=== PATIENT | female | born 1935 | race African-American/Black ===

== ENCOUNTER 2019-08-03 13:42 | Inpatient (IN) ==
[2019-08-03 14:31] LABS: Basophils % 0.3 % (0.0-0.8); Eosinophils % 0.5 % (0.00-10.9); Hematocrit 42.9 VOL% (35.7-47.0); Hemoglobin 13.1 GM/DL (12.0-16.0); Immature Granulocytes % 0.4 %; Immature Granulocytes Absolute 0.03 #; Lymphocytes # 1.3 10*3/uL (1.4-4.0); Lymphocytes % 17.4 % (21.3-54.2); Mean Corpuscular HGB Conc 30.5 GM/DL (32-36); Mean Corpuscular Volume 79.4 FL (87-102); Mean Platelet Volume 10.4 FL (9.6-12.0); Monocytes % 4.8 % (1.7-12.7); Neutrophils % 76.6 % (38.7-73.9); Platelet Count 258 T/CUMM (130-400); Red Cell Distribution Width 18.1 % (9.3-17.3); White Blood Count 7.4 T/CUMM (4-12)
[2019-08-03 14:46] LABS: INR 1.1; PT Patient Result 11.5 SECS (9.8-11.9)
[2019-08-03 14:52] LABS: Albumin 3.4 G/DL (3.4-5.0); Bilirubin,Total 0.5 MG/DL (0.2-1.0); Osmolality,Calculated 282.3 MOS/KG (273-304); Total Protein 7.9 G/DL (6.4-8.3)
[2019-08-03] MEDS ORDERED: ENOXAPARIN 30 MG/0.3 ML SYRINGE SUBCUT STA (14:56)
[2019-08-03 14:58] LABS: Free T4 (Free Thyroxine) 1.1 NG/DL (0.76-1.46); Thyroid Stimulating Hormone 1.8 uIU/ml (0.358-3.74)
[2019-08-03] MEDS ORDERED: DEXTROSE 10% 250 ML BAG IV PRN (16:13)
[2019-08-03] MEDS ORDERED: GLUCAGON 1 MG VIAL IM PRN (16:13)
[2019-08-03] MEDS ORDERED: ASPIRIN EC 325 MG TABLET PO STA (16:21)
[2019-08-03] MEDS ORDERED: INSULIN REGULAR 100 UNIT/ML SUBCUT SCH (16:30)
[2019-08-03] MEDS: NITROGLYCERIN 2% OINT 1 INCH/GM PACK TOP SCH (18:16)
[2019-08-03] MEDS: ALUMINUM/MAGNES/SIMETH MAX STR 30 ML UDCUP PO PRN (20:30)
[2019-08-03 22:06] LABS: Apearance,Urine CLOUDY (Clear); Bilirubin,Urine Negative (Negative); Blood, Urine Negative (Negative); Glucose,Urine (UA) Negative (Negative); Hyaline Casts,Urine 33 /LPF (0-3); Ketones,Urine Negative (Negative); Mucus,Urine Few /LPF (Occasional); Nitrite,Urine Negative (Negative); Protein,Urine 30 MG/DL; RBC,Urine 17 /HPF (0-4); Squamous Epithelial Cell,Urine Occasional /HPF (0-10); Urine Color Amber (Yellow); Urine Specific Gravity 1.028 (1.001-1.035); Urine Urobilinogen < 2.0 EU/DL (0.2-1.0); WBC,Urine 50 /HPF (0-6)
[2019-08-04] MEDS: NITROGLYCERIN 2% OINT 1 INCH/GM PACK TOP SCH ×4 (00:25→18:19)
[2019-08-04] MEDS: ENOXAPARIN 80 MG/0.8 ML SYRINGE SUBCUT SCH ×2 (04:38→18:00)
[2019-08-04] MEDS: ACETAMINOPHEN 325 MG TABLET PO PRN (06:32)
[2019-08-04] MEDS ORDERED: MAGNESIUM SULF RIDER 2 GM in PREMIX 1 EACH IV PRN (07:29)
[2019-08-04] MEDS ORDERED: POTASSIUM CHLORIDE RIDER 10 MEQ in PREMIX 1 EACH IV PRN (07:29)
[2019-08-04] MEDS ORDERED: diphenhydrAMINE CAP 25 MG CAPSULE PO ONE ×2 (07:33→14:30)
[2019-08-04] MEDS ORDERED: DIAZEPAM 5 MG TABLET PO ONE ×2 (07:33→14:30)
[2019-08-04 07:42] LABS: Basophils % 0.1 % (0.0-0.8); Eosinophils # 0.2 10*3/uL (0.0-0.87); Eosinophils % 1.8 % (0.00-10.9); Hematocrit 40.3 VOL% (35.7-47.0); Hemoglobin 12.2 GM/DL (12.0-16.0); Immature Granulocytes % 0.2 %; Immature Granulocytes Absolute 0.02 #; Lymphocytes # 3.1 10*3/uL (1.4-4.0); Lymphocytes % 36.8 % (21.3-54.2); Mean Corpuscular HGB Conc 30.3 GM/DL (32-36); Mean Corpuscular Volume 79.3 FL (87-102); Mean Platelet Volume 10.5 FL (9.6-12.0); Monocytes % 6.4 % (1.7-12.7); Neutrophils % 54.7 % (38.7-73.9); Platelet Count 269 T/CUMM (130-400); Red Blood Count 5.08 MC/CUMM (3.8-5.5); Red Cell Distribution Width 17.5 % (9.3-17.3); White Blood Count 8.5 T/CUMM (4-12)
[2019-08-04 08:44] LABS: Risk Ratio 6.32; VLDL CHOLESTEROL 21.2 MG/DL
[2019-08-04 08:53] LABS: Bilirubin,Total 0.5 MG/DL (0.2-1.0); Calcium 8.7 MG/DL (8.5-10.1); Osmolality,Calculated 281.3 MOS/KG (273-304); Total Protein 7.3 G/DL (6.4-8.3)
[2019-08-04] MEDS ORDERED: carvediloL 3.125 MG TABLET PO SCH (09:00)
[2019-08-04] MEDS ORDERED: ASPIRIN EC 325 MG TABLET PO SCH (09:00)
[2019-08-04] MEDS ORDERED: LOSARTAN 50 MG TABLET PO SCH (09:00)
[2019-08-04] MEDS: PANTOPRAZOLE 40 MG TABLET PO SCH (09:50)
[2019-08-04] MEDS: cefTRIAXone 1,000 MG in SYRINGE 1 EACH IV SCH (09:50)
[2019-08-04] MEDS: MEMANTINE 5 MG TABLET PO SCH (09:50)
[2019-08-04] MEDS: amLODIPine 10 MG TABLET PO SCH (09:50)
[2019-08-04] MEDS ORDERED: DIAZEPAM 5 MG TABLET ONE (14:18)
[2019-08-04] MEDS ORDERED: diphenhydrAMINE CAP 25 MG CAPSULE ONE (14:19)
[2019-08-04] MEDS: SODIUM CHLORIDE 0.45% 1,000 ML IV SCH ×2 (14:23→23:12)
[2019-08-04] MEDS ORDERED: HEPARIN/NACL 0.9% 2 UNITS/ML 1,000 ML IV ONE (14:32)
[2019-08-04] MEDS ORDERED: LIDOCAINE 1%/EPI INJ 20 ML VIAL ONE (14:32)
[2019-08-04] MEDS ORDERED: fentaNYL 100 MCG/2 ML VIAL ONE (14:32)
[2019-08-04] MEDS ORDERED: MIDAZOLAM 2 MG/2 ML VIAL ONE (14:32)
[2019-08-04] MEDS ORDERED: hydrALAZINE 20 MG/1 ML VIAL ONE (15:05)
[2019-08-04] MEDS ORDERED: ONDANSETRON 4 MG/2 ML VIAL ONE (15:33)
[2019-08-04 17:27] LABS: Basophils % 0.2 % (0.0-0.8); Eosinophils # 0.1 10*3/uL (0.0-0.87); Eosinophils % 0.9 % (0.00-10.9); Hematocrit 40.5 VOL% (35.7-47.0); Hemoglobin 12.5 GM/DL (12.0-16.0); Immature Granulocytes % 0.4 %; Immature Granulocytes Absolute 0.04 #; Lymphocytes # 2.8 10*3/uL (1.4-4.0); Mean Corpuscular HGB Conc 30.9 GM/DL (32-36); Mean Corpuscular Volume 79.4 FL (87-102); Mean Platelet Volume 9.7 FL (9.6-12.0); Monocytes % 4.8 % (1.7-12.7); Neutrophils % 66.7 % (38.7-73.9); Platelet Count 250 T/CUMM (130-400); Red Cell Distribution Width 18.1 % (9.3-17.3); White Blood Count 10.3 T/CUMM (4-12)
[2019-08-04] MEDS: hydrALAZINE 20 MG/1 ML VIAL IV PRN (19:06)
[2019-08-04] MEDS: ONDANSETRON 4 MG/2 ML VIAL IV PRN (19:50)
[2019-08-04] MEDS ORDERED: ALUM/MAG/SIMETH/LIDO VISC 1:1 30 ML BOTTLE PO ONE (20:04)
[2019-08-04] MEDS ORDERED: PANTOPRAZOLE 40 MG VIAL IV ONE (20:19)
[2019-08-04] MEDS: HYDROmorphone 2 MG/1 ML VIAL IV PRN (20:30)
[2019-08-04] MEDS: ROSUVASTATIN 20 MG TABLET PO SCH (21:27)
[2019-08-04] MEDS: ALUMINUM/MAGNES/SIMETH MAX STR 30 ML UDCUP PO PRN (21:28)
[2019-08-04] MEDS: METOPROLOL TARTRATE 50 MG TABLET PO SCH (21:28)
[2019-08-05] MEDS: NITROGLYCERIN 2% OINT 1 INCH/GM PACK TOP SCH ×4 (00:01→17:27)
[2019-08-05] MEDS: ENOXAPARIN 80 MG/0.8 ML SYRINGE SUBCUT SCH ×2 (03:30→15:21)
[2019-08-05] MEDS: LEVOTHYROXINE 100 MCG TABLET PO SCH (05:31)
[2019-08-05 07:05] LABS: Osmolality,Calculated 271.1 MOS/KG (273-304)
[2019-08-05 07:24] LABS: Basophils % 0.1 % (0.0-0.8); Eosinophils % 0.1 % (0.00-10.9); Hematocrit 40.1 VOL% (35.7-47.0); Hemoglobin 12.4 GM/DL (12.0-16.0); Immature Granulocytes % 0.4 %; Immature Granulocytes Absolute 0.04 #; Lymphocytes # 2.3 10*3/uL (1.4-4.0); Lymphocytes % 20.7 % (21.3-54.2); Mean Corpuscular HGB Conc 30.9 GM/DL (32-36); Mean Corpuscular Volume 78.3 FL (87-102); Mean Platelet Volume 10.7 FL (9.6-12.0); Monocytes % 3.7 % (1.7-12.7); Platelet Count 269 T/CUMM (130-400); Red Blood Count 5.12 MC/CUMM (3.8-5.5); White Blood Count 10.9 T/CUMM (4-12)
[2019-08-05] MEDS: SODIUM CHLORIDE 0.9% 1,000 ML IV SCH ×2 (08:19→17:27)
[2019-08-05] MEDS: ASPIRIN EC 81 MG TABLET PO SCH (09:08)
[2019-08-05] MEDS: METOPROLOL TARTRATE 50 MG TABLET PO SCH ×2 (09:09→21:06)
[2019-08-05] MEDS: MEMANTINE 5 MG TABLET PO SCH (09:09)
[2019-08-05] MEDS: amLODIPine 10 MG TABLET PO SCH (09:09)
[2019-08-05] MEDS: PANTOPRAZOLE 40 MG TABLET PO SCH (09:10)
[2019-08-05] MEDS: cefTRIAXone 1,000 MG in SYRINGE 1 EACH IV SCH (09:19)
[2019-08-05] MEDS: ACETAMINOPHEN 325 MG TABLET PO PRN (15:20)
[2019-08-05] MEDS: hydrALAZINE 20 MG/1 ML VIAL IV PRN (16:02)
[2019-08-05] MEDS: ONDANSETRON 4 MG/2 ML VIAL IV PRN (20:38)
[2019-08-05] MEDS: HYDROmorphone 2 MG/1 ML VIAL IV PRN (20:38)
[2019-08-05] MEDS: ROSUVASTATIN 20 MG TABLET PO SCH (21:06)
[2019-08-05] MEDS: ALUMINUM/MAGNES/SIMETH MAX STR 30 ML UDCUP PO PRN (21:07)
[2019-08-06] MEDS: NITROGLYCERIN 2% OINT 1 INCH/GM PACK TOP SCH ×4 (01:36→17:08)
[2019-08-06] MEDS: ENOXAPARIN 80 MG/0.8 ML SYRINGE SUBCUT SCH ×2 (04:16→14:49)
[2019-08-06 07:05] LABS: Basophils % 0.1 % (0.0-0.8); Eosinophils % 0.1 % (0.00-10.9); Hematocrit 29.7 VOL% (35.7-47.0); Immature Granulocytes % 0.3 %; Immature Granulocytes Absolute 0.03 #; Lymphocytes # 2.1 10*3/uL (1.4-4.0); Mean Corpuscular HGB Conc 30.3 GM/DL (32-36); Mean Corpuscular Volume 80.1 FL (87-102); Mean Platelet Volume 10.5 FL (9.6-12.0); Neutrophils % 71.5 % (38.7-73.9); Platelet Count 216 T/CUMM (130-400); Red Blood Count 3.71 MC/CUMM (3.8-5.5); Red Cell Distribution Width 17.6 % (9.3-17.3); White Blood Count 9.2 T/CUMM (4-12)
[2019-08-06 07:26] LABS: Albumin 2.7 G/DL (3.4-5.0); Bilirubin,Total 0.5 MG/DL (0.2-1.0); Calcium 8.3 MG/DL (8.5-10.1); Osmolality,Calculated 275.8 MOS/KG (273-304); Total Protein 6.4 G/DL (6.4-8.3)
[2019-08-06] MEDS: LEVOTHYROXINE 100 MCG TABLET PO SCH (07:44)
[2019-08-06] MEDS: SODIUM CHLORIDE 0.9% 1,000 ML IV SCH (10:17)
[2019-08-06] MEDS: ASPIRIN EC 81 MG TABLET PO SCH (10:18)
[2019-08-06] MEDS: amLODIPine 10 MG TABLET PO SCH (10:18)
[2019-08-06] MEDS: cefTRIAXone 1,000 MG in SYRINGE 1 EACH IV SCH ×2 (10:18→10:22)
[2019-08-06] MEDS: MEMANTINE 5 MG TABLET PO SCH (10:18)
[2019-08-06] MEDS: PANTOPRAZOLE 40 MG TABLET PO SCH (10:18)
[2019-08-06] MEDS: METOPROLOL TARTRATE 50 MG TABLET PO SCH ×2 (10:18→20:56)
[2019-08-06 11:38] LABS: % Iron Saturation 9.4 % (18-50); Ferritin 131.3 ng/ml (8-252)
[2019-08-06 12:11] LABS: Hematocrit 30.1 VOL% (35.7-47.0); Hemoglobin 9.1 GM/DL (12.0-16.0)
[2019-08-06 12:37] LABS: Folate > 24.0 NG/ML (5.4-24.0); Vitamin B12 655 PG/ML (211-911)
[2019-08-06] MEDS: ROSUVASTATIN 20 MG TABLET PO SCH (20:56)
[2019-08-07] MEDS: NITROGLYCERIN 2% OINT 1 INCH/GM PACK TOP SCH ×2 (03:11→06:51)
[2019-08-07] MEDS: ENOXAPARIN 80 MG/0.8 ML SYRINGE SUBCUT SCH (03:12)
[2019-08-07 05:55] LABS: Basophils % 0.3 % (0.0-0.8); Eosinophils # 0.2 10*3/uL (0.0-0.87); Eosinophils % 1.8 % (0.00-10.9); Hemoglobin 8.2 GM/DL (12.0-16.0); Immature Granulocytes % 0.3 %; Immature Granulocytes Absolute 0.03 #; Lymphocytes # 2.3 10*3/uL (1.4-4.0); Lymphocytes % 21.7 % (21.3-54.2); Mean Corpuscular HGB Conc 31.5 GM/DL (32-36); Mean Corpuscular Volume 77.2 FL (87-102); Mean Platelet Volume 10.7 FL (9.6-12.0); Monocytes % 7.8 % (1.7-12.7); Neutrophils % 68.1 % (38.7-73.9); Platelet Count 194 T/CUMM (130-400); Red Blood Count 3.37 MC/CUMM (3.8-5.5); Red Cell Distribution Width 17.7 % (9.3-17.3); White Blood Count 10.6 T/CUMM (4-12)
[2019-08-07] MEDS: LEVOTHYROXINE 100 MCG TABLET PO SCH (06:51)
[2019-08-07] MEDS ORDERED: CLOPIDOGREL 75 MG TABLET PO SCH (09:00)
[2019-08-07] MEDS: MEMANTINE 5 MG TABLET PO SCH (09:36)
[2019-08-07] MEDS: PANTOPRAZOLE 40 MG TABLET PO SCH (09:36)
[2019-08-07] MEDS: ASPIRIN EC 81 MG TABLET PO SCH (09:36)
[2019-08-07] MEDS: cefTRIAXone 1,000 MG in SYRINGE 1 EACH IV SCH (09:37)
[2019-08-07] MEDS: METOPROLOL TARTRATE 50 MG TABLET PO SCH ×2 (09:37→21:44)
[2019-08-07] MEDS: amLODIPine 10 MG TABLET PO SCH (09:37)
[2019-08-07] MEDS: ISOSORBIDE MONONITRATE 30 MG TABLET PO SCH (13:13)
[2019-08-07] MEDS: FERROUS SULFATE 325 MG TABLET PO SCH ×2 (13:13→21:43)
[2019-08-07] MEDS: ROSUVASTATIN 20 MG TABLET PO SCH (21:43)
[2019-08-08 05:02] LABS: Basophils % 0.1 % (0.0-0.8); Eosinophils # 0.3 10*3/uL (0.0-0.87); Eosinophils % 2.2 % (0.00-10.9); Hematocrit 26.3 VOL% (35.7-47.0); Hemoglobin 8.1 GM/DL (12.0-16.0); Immature Granulocytes % 0.6 %; Immature Granulocytes Absolute 0.08 #; Lymphocytes # 2.4 10*3/uL (1.4-4.0); Lymphocytes % 16.5 % (21.3-54.2); Mean Corpuscular HGB Conc 30.8 GM/DL (32-36); Mean Platelet Volume 10.8 FL (9.6-12.0); Monocytes % 6.2 % (1.7-12.7); Neutrophils % 74.4 % (38.7-73.9); Platelet Count 205 T/CUMM (130-400); Red Blood Count 3.37 MC/CUMM (3.8-5.5); White Blood Count 14.4 T/CUMM (4-12)
[2019-08-08 05:25] LABS: Osmolality,Calculated 281.5 MOS/KG (273-304)
[2019-08-08] MEDS: LEVOTHYROXINE 100 MCG TABLET PO SCH (05:32)
[2019-08-08] MEDS: ISOSORBIDE MONONITRATE 30 MG TABLET PO SCH (08:49)
[2019-08-08] MEDS: amLODIPine 10 MG TABLET PO SCH (08:49)
[2019-08-08] MEDS: FERROUS SULFATE 325 MG TABLET PO SCH ×2 (08:49→21:28)
[2019-08-08] MEDS: MEMANTINE 5 MG TABLET PO SCH (08:49)
[2019-08-08] MEDS: METOPROLOL TARTRATE 50 MG TABLET PO SCH (08:49)
[2019-08-08] MEDS: ACETAMINOPHEN 325 MG TABLET PO PRN (08:49)
[2019-08-08] MEDS: PANTOPRAZOLE 40 MG TABLET PO SCH (08:49)
[2019-08-08] MEDS: ASPIRIN EC 81 MG TABLET PO SCH (08:49)
[2019-08-08] MEDS: cefTRIAXone 1,000 MG in SYRINGE 1 EACH IV SCH (08:50)
[2019-08-08] MEDS ORDERED: METOPROLOL TARTRATE 25 MG TABLET PO ONE (10:00)
[2019-08-08] MEDS: SODIUM CHLORIDE 0.9% 1,000 ML IV SCH ×2 (11:26→22:43)
[2019-08-08] MEDS ORDERED: PHENOL 1.4% THROAT SPRAY 177 ML BOTTLE PO PRN (17:09)
[2019-08-08] MEDS: ROSUVASTATIN 20 MG TABLET PO SCH (21:28)
[2019-08-08] MEDS: METOPROLOL TARTRATE 100 MG TABLET PO SCH (21:28)
[2019-08-09 04:38] LABS: Basophils % 0.1 % (0.0-0.8); Eosinophils # 0.5 10*3/uL (0.0-0.87); Eosinophils % 3.1 % (0.00-10.9); Hematocrit 25.6 VOL% (35.7-47.0); Hemoglobin 7.9 GM/DL (12.0-16.0); Immature Granulocytes % 0.7 %; Lymphocytes # 2.4 10*3/uL (1.4-4.0); Lymphocytes % 16.7 % (21.3-54.2); Mean Corpuscular HGB Conc 30.9 GM/DL (32-36); Mean Corpuscular Volume 79.3 FL (87-102); Mean Platelet Volume 10.6 FL (9.6-12.0); Monocytes % 6.3 % (1.7-12.7); NRBC # 0.02 10*3/uL; Neutrophils % 73.1 % (38.7-73.9); Platelet Count 210 T/CUMM (130-400); Red Blood Count 3.23 MC/CUMM (3.8-5.5); Red Cell Distribution Width 18.1 % (9.3-17.3); White Blood Count 14.5 T/CUMM (4-12)
[2019-08-09 04:39] LABS: Basophils % 0.2 % (0.0-0.8); Eosinophils # 0.4 10*3/uL (0.0-0.87); Eosinophils % 2.9 % (0.00-10.9); Hematocrit 26.1 VOL% (35.7-47.0); Hemoglobin 7.9 GM/DL (12.0-16.0); Immature Granulocytes % 0.6 %; Immature Granulocytes Absolute 0.09 #; Lymphocytes # 2.4 10*3/uL (1.4-4.0); Lymphocytes % 16.7 % (21.3-54.2); Mean Corpuscular HGB Conc 30.3 GM/DL (32-36); Mean Corpuscular Volume 79.1 FL (87-102); Mean Platelet Volume 10.5 FL (9.6-12.0); Monocytes % 6.3 % (1.7-12.7); NRBC # 0.03 10*3/uL; Neutrophils % 73.3 % (38.7-73.9); Platelet Count 214 T/CUMM (130-400); Red Cell Distribution Width 18.1 % (9.3-17.3); White Blood Count 14.3 T/CUMM (4-12)
[2019-08-09 05:12] LABS: INR 1.1; PT Patient Result 11.3 SECS (9.8-11.9); Partial Thromboplastin Time 26.6 SECS (23.9-33.8)
[2019-08-09] MEDS: SODIUM CHLORIDE 0.9% 1,000 ML IV SCH ×3 (05:25→16:40)
[2019-08-09] MEDS: LEVOTHYROXINE 100 MCG TABLET PO SCH (05:58)
[2019-08-09] MEDS: FERROUS SULFATE 325 MG TABLET PO SCH ×2 (08:42→22:02)
[2019-08-09] MEDS: ASPIRIN EC 81 MG TABLET PO SCH (08:42)
[2019-08-09] MEDS: MEMANTINE 5 MG TABLET PO SCH (08:42)
[2019-08-09] MEDS: ISOSORBIDE MONONITRATE 30 MG TABLET PO SCH (08:42)
[2019-08-09] MEDS: PANTOPRAZOLE 40 MG TABLET PO SCH (08:42)
[2019-08-09] MEDS: amLODIPine 10 MG TABLET PO SCH (08:43)
[2019-08-09] MEDS: METOPROLOL TARTRATE 100 MG TABLET PO SCH ×2 (08:43→22:02)
[2019-08-09] MEDS ORDERED: SODIUM CHLORIDE 0.9% 1,000 ML IV PRN (10:59)
[2019-08-09] MEDS: CLOPIDOGREL 75 MG TABLET PO SCH (13:05)
[2019-08-09 15:23] LABS: Albumin 2.8 G/DL (3.4-5.0); Bilirubin,Total 0.9 MG/DL (0.2-1.0); Calcium 8.9 MG/DL (8.5-10.1); Osmolality,Calculated 282.4 MOS/KG (273-304); Total Protein 6.6 G/DL (6.4-8.3)
[2019-08-09] MEDS: ROSUVASTATIN 20 MG TABLET PO SCH (22:02)
[2019-08-10] MEDS: SODIUM CHLORIDE 0.9% 1,000 ML IV SCH ×2 (03:00→06:46)
[2019-08-10] MEDS: LEVOTHYROXINE 100 MCG TABLET PO SCH (06:28)
[2019-08-10 07:24] LABS: Hematocrit 28.2 VOL% (35.7-47.0); Hemoglobin 9.2 GM/DL (12.0-16.0)
[2019-08-10] MEDS: MEMANTINE 5 MG TABLET PO SCH (10:08)
[2019-08-10] MEDS: amLODIPine 10 MG TABLET PO SCH (10:10)
[2019-08-10] MEDS: FERROUS SULFATE 325 MG TABLET PO SCH ×2 (10:10→22:24)
[2019-08-10] MEDS: ASPIRIN EC 81 MG TABLET PO SCH (10:10)
[2019-08-10] MEDS: CLOPIDOGREL 75 MG TABLET PO SCH (10:10)
[2019-08-10] MEDS: PANTOPRAZOLE 40 MG TABLET PO SCH (10:10)
[2019-08-10] MEDS: ISOSORBIDE MONONITRATE 30 MG TABLET PO SCH (10:10)
[2019-08-10] MEDS: METOPROLOL TARTRATE 100 MG TABLET PO SCH ×2 (10:12→22:24)
[2019-08-10] MEDS: HYDROmorphone 2 MG/1 ML VIAL IV PRN (17:06)
[2019-08-10] MEDS ORDERED: NITROGLYCERIN SL 0.4 MG TABLET SL PRN (17:27)
[2019-08-10] MEDS: ALUMINUM/MAGNES/SIMETH MAX STR 30 ML UDCUP PO PRN (17:39)
[2019-08-10] MEDS: ROSUVASTATIN 20 MG TABLET PO SCH (22:24)
[2019-08-10] MEDS: ACETAMINOPHEN 325 MG TABLET PO PRN (23:21)
[2019-08-11 06:33] LABS: Basophils % 0.3 % (0.0-0.8); Eosinophils # 0.4 10*3/uL (0.0-0.87); Eosinophils % 3.4 % (0.00-10.9); Hematocrit 28.2 VOL% (35.7-47.0); Hemoglobin 8.9 GM/DL (12.0-16.0); Immature Granulocytes % 0.7 %; Immature Granulocytes Absolute 0.08 #; Lymphocytes # 2.6 10*3/uL (1.4-4.0); Lymphocytes % 23.1 % (21.3-54.2); Mean Corpuscular HGB Conc 31.6 GM/DL (32-36); Mean Corpuscular Volume 80.3 FL (87-102); Mean Platelet Volume 10.5 FL (9.6-12.0); Monocytes % 7.6 % (1.7-12.7); NRBC # 0.05 10*3/uL; Neutrophils % 64.9 % (38.7-73.9); Platelet Count 258 T/CUMM (130-400); Red Blood Count 3.51 MC/CUMM (3.8-5.5); Red Cell Distribution Width 18.3 % (9.3-17.3); White Blood Count 11.1 T/CUMM (4-12)
[2019-08-11 06:53] LABS: Calcium 8.8 MG/DL (8.5-10.1); Osmolality,Calculated 275.7 MOS/KG (273-304)
[2019-08-11] MEDS: LEVOTHYROXINE 100 MCG TABLET PO SCH (07:07)
[2019-08-11] MEDS: FERROUS SULFATE 325 MG TABLET PO SCH ×2 (09:22→20:39)
[2019-08-11] MEDS: PANTOPRAZOLE 40 MG TABLET PO SCH (09:22)
[2019-08-11] MEDS: CLOPIDOGREL 75 MG TABLET PO SCH (09:22)
[2019-08-11] MEDS: METOPROLOL TARTRATE 100 MG TABLET PO SCH ×2 (09:22→20:39)
[2019-08-11] MEDS: MEMANTINE 5 MG TABLET PO SCH (09:22)
[2019-08-11] MEDS: ASPIRIN EC 81 MG TABLET PO SCH (09:23)
[2019-08-11] MEDS: amLODIPine 10 MG TABLET PO SCH (09:23)
[2019-08-11] MEDS: ISOSORBIDE MONONITRATE 30 MG TABLET PO SCH (09:23)
[2019-08-11] MEDS: SODIUM CHLORIDE 0.9% 1,000 ML IV SCH (09:34)
[2019-08-11] MEDS: ROSUVASTATIN 20 MG TABLET PO SCH (20:39)
[2019-08-12] MEDS: ACETAMINOPHEN 325 MG TABLET PO PRN ×2 (04:59→21:53)
[2019-08-12] MEDS: LEVOTHYROXINE 100 MCG TABLET PO SCH (05:52)
[2019-08-12 06:08] LABS: Basophils % 0.3 % (0.0-0.8); Eosinophils # 0.4 10*3/uL (0.0-0.87); Eosinophils % 3.7 % (0.00-10.9); Hematocrit 28.8 VOL% (35.7-47.0); Immature Granulocytes % 0.7 %; Immature Granulocytes Absolute 0.07 #; Lymphocytes # 2.3 10*3/uL (1.4-4.0); Lymphocytes % 23.5 % (21.3-54.2); Mean Corpuscular HGB Conc 31.3 GM/DL (32-36); Mean Corpuscular Volume 81.4 FL (87-102); Mean Platelet Volume 10.4 FL (9.6-12.0); Monocytes % 8.4 % (1.7-12.7); NRBC # 0.03 10*3/uL; Neutrophils % 63.4 % (38.7-73.9); Platelet Count 248 T/CUMM (130-400); Red Blood Count 3.54 MC/CUMM (3.8-5.5); Red Cell Distribution Width 18.4 % (9.3-17.3); White Blood Count 9.8 T/CUMM (4-12)
[2019-08-12 06:51] LABS: Calcium 8.8 MG/DL (8.5-10.1); Osmolality,Calculated 274.8 MOS/KG (273-304)
[2019-08-12] MEDS: SODIUM CHLORIDE 0.9% 1,000 ML IV SCH (06:59)
[2019-08-12] MEDS: ALUMINUM/MAGNES/SIMETH MAX STR 30 ML UDCUP PO PRN ×2 (09:44→14:02)
[2019-08-12] MEDS: CLOPIDOGREL 75 MG TABLET PO SCH (09:44)
[2019-08-12] MEDS: amLODIPine 10 MG TABLET PO SCH (09:44)
[2019-08-12] MEDS: MEMANTINE 5 MG TABLET PO SCH (09:44)
[2019-08-12] MEDS: ISOSORBIDE MONONITRATE 30 MG TABLET PO SCH (09:45)
[2019-08-12] MEDS: METOPROLOL TARTRATE 100 MG TABLET PO SCH ×2 (09:45→21:53)
[2019-08-12] MEDS: PANTOPRAZOLE 40 MG TABLET PO SCH (09:45)
[2019-08-12] MEDS: FERROUS SULFATE 325 MG TABLET PO SCH ×2 (09:45→21:53)
[2019-08-12] MEDS: ASPIRIN EC 81 MG TABLET PO SCH (09:45)
[2019-08-12] MEDS: ROSUVASTATIN 20 MG TABLET PO SCH (21:54)
[2019-08-13] MEDS: ACETAMINOPHEN 325 MG TABLET PO PRN (04:44)
[2019-08-13] MEDS: LEVOTHYROXINE 100 MCG TABLET PO SCH (05:48)
[2019-08-13 06:52] LABS: Basophils % 0.3 % (0.0-0.8); Eosinophils # 0.4 10*3/uL (0.0-0.87); Hematocrit 29.7 VOL% (35.7-47.0); Hemoglobin 9.3 GM/DL (12.0-16.0); Immature Granulocytes % 0.7 %; Immature Granulocytes Absolute 0.07 #; Lymphocytes # 1.9 10*3/uL (1.4-4.0); Lymphocytes % 20.2 % (21.3-54.2); Mean Corpuscular HGB Conc 31.3 GM/DL (32-36); Mean Corpuscular Volume 81.4 FL (87-102); Mean Platelet Volume 10.3 FL (9.6-12.0); Monocytes % 7.1 % (1.7-12.7); Neutrophils % 67.7 % (38.7-73.9); Platelet Count 299 T/CUMM (130-400); Red Blood Count 3.65 MC/CUMM (3.8-5.5); Red Cell Distribution Width 18.5 % (9.3-17.3); White Blood Count 9.6 T/CUMM (4-12)
[2019-08-13 07:02] LABS: Calcium 8.7 MG/DL (8.5-10.1); Osmolality,Calculated 276.8 MOS/KG (273-304)
[2019-08-13] MEDS: SODIUM CHLORIDE 0.9% 1,000 ML IV SCH (08:14)
[2019-08-13] MEDS: amLODIPine 10 MG TABLET PO SCH (09:20)
[2019-08-13] MEDS: FERROUS SULFATE 325 MG TABLET PO SCH ×2 (09:20→20:59)
[2019-08-13] MEDS: ALUMINUM/MAGNES/SIMETH MAX STR 30 ML UDCUP PO PRN ×2 (09:20→14:04)
[2019-08-13] MEDS: ASPIRIN EC 81 MG TABLET PO SCH (09:20)
[2019-08-13] MEDS: METOPROLOL TARTRATE 100 MG TABLET PO SCH ×2 (09:20→20:59)
[2019-08-13] MEDS: PANTOPRAZOLE 40 MG TABLET PO SCH (09:20)
[2019-08-13] MEDS: ISOSORBIDE MONONITRATE 30 MG TABLET PO SCH (09:20)
[2019-08-13] MEDS: MEMANTINE 5 MG TABLET PO SCH (09:20)
[2019-08-13] MEDS: CLOPIDOGREL 75 MG TABLET PO SCH (09:20)
[2019-08-13] MEDS: GABAPENTIN 100 MG CAPSULE PO SCH ×3 (10:41→20:59)
[2019-08-13 11:25] LABS: Troponin I < 0.015 NG/ML (0.00-0.045)
[2019-08-13 13:54] LABS: Troponin I < 0.015 NG/ML (0.00-0.045)
[2019-08-13 17:19] LABS: Troponin I < 0.015 NG/ML (0.00-0.045)
[2019-08-13] MEDS: ROSUVASTATIN 20 MG TABLET PO SCH (20:59)
[2019-08-14] MEDS: ACETAMINOPHEN 325 MG TABLET PO PRN ×3 (00:26→16:08)
[2019-08-14] MEDS: LEVOTHYROXINE 100 MCG TABLET PO SCH (05:29)
[2019-08-14] MEDS: SODIUM CHLORIDE 0.9% 1,000 ML IV SCH (05:34)
[2019-08-14 05:59] LABS: Basophils % 0.2 % (0.0-0.8); Eosinophils # 0.4 10*3/uL (0.0-0.87); Eosinophils % 3.3 % (0.00-10.9); Hematocrit 31.2 VOL% (35.7-47.0); Hemoglobin 9.6 GM/DL (12.0-16.0); Immature Granulocytes % 0.7 %; Immature Granulocytes Absolute 0.09 #; Lymphocytes # 2.9 10*3/uL (1.4-4.0); Lymphocytes % 23.7 % (21.3-54.2); Mean Corpuscular HGB Conc 30.8 GM/DL (32-36); Mean Corpuscular Volume 81.7 FL (87-102); Mean Platelet Volume 10.2 FL (9.6-12.0); Monocytes % 7.8 % (1.7-12.7); NRBC # 0.02 10*3/uL; Neutrophils % 64.3 % (38.7-73.9); Platelet Count 317 T/CUMM (130-400); Red Blood Count 3.82 MC/CUMM (3.8-5.5); Red Cell Distribution Width 18.8 % (9.3-17.3); White Blood Count 12.1 T/CUMM (4-12)
[2019-08-14 06:16] LABS: Calcium 8.7 MG/DL (8.5-10.1); Osmolality,Calculated 278.8 MOS/KG (273-304)
[2019-08-14] MEDS: ASPIRIN EC 81 MG TABLET PO SCH (08:44)
[2019-08-14] MEDS: amLODIPine 10 MG TABLET PO SCH (08:44)
[2019-08-14] MEDS: CLOPIDOGREL 75 MG TABLET PO SCH (08:44)
[2019-08-14] MEDS: PANTOPRAZOLE 40 MG TABLET PO SCH (08:44)
[2019-08-14] MEDS: MEMANTINE 5 MG TABLET PO SCH (08:44)
[2019-08-14] MEDS: METOPROLOL TARTRATE 100 MG TABLET PO SCH ×2 (08:44→20:43)
[2019-08-14] MEDS: GABAPENTIN 100 MG CAPSULE PO SCH (08:44)
[2019-08-14] MEDS: ISOSORBIDE MONONITRATE 30 MG TABLET PO SCH (08:44)
[2019-08-14] MEDS: FERROUS SULFATE 325 MG TABLET PO SCH ×2 (08:44→20:43)
[2019-08-14] MEDS: ALUMINUM/MAGNES/SIMETH MAX STR 30 ML UDCUP PO PRN (16:35)
[2019-08-14] MEDS: ROSUVASTATIN 20 MG TABLET PO SCH (20:43)
[2019-08-15] MEDS: ACETAMINOPHEN 325 MG TABLET PO PRN (01:20)
[2019-08-15] MEDS: SODIUM CHLORIDE 0.9% 1,000 ML IV SCH (03:05)
[2019-08-15] MEDS: LEVOTHYROXINE 100 MCG TABLET PO SCH (05:14)
[2019-08-15 07:59] VITALS: BP 173/77
[2019-08-15 08:34] LABS: Basophils % 0.2 % (0.0-0.8); Eosinophils # 0.4 10*3/uL (0.0-0.87); Eosinophils % 3.5 % (0.00-10.9); Hematocrit 30.7 VOL% (35.7-47.0); Hemoglobin 9.4 GM/DL (12.0-16.0); Immature Granulocytes % 0.8 %; Immature Granulocytes Absolute 0.09 #; Lymphocytes # 2.4 10*3/uL (1.4-4.0); Lymphocytes % 22.1 % (21.3-54.2); Mean Corpuscular HGB Conc 30.6 GM/DL (32-36); Mean Corpuscular Volume 82.5 FL (87-102); Mean Platelet Volume 10.4 FL (9.6-12.0); Monocytes % 9.6 % (1.7-12.7); Neutrophils % 63.8 % (38.7-73.9); Platelet Count 333 T/CUMM (130-400); Red Blood Count 3.72 MC/CUMM (3.8-5.5); Red Cell Distribution Width 18.8 % (9.3-17.3); White Blood Count 10.8 T/CUMM (4-12)
[2019-08-15] MEDS: CLOPIDOGREL 75 MG TABLET PO SCH (08:34)
[2019-08-15] MEDS: MEMANTINE 5 MG TABLET PO SCH (08:34)
[2019-08-15] MEDS: ASPIRIN EC 81 MG TABLET PO SCH (08:34)
[2019-08-15] MEDS: amLODIPine 10 MG TABLET PO SCH (08:34)
[2019-08-15] MEDS: PANTOPRAZOLE 40 MG TABLET PO SCH (08:34)
[2019-08-15] MEDS: ISOSORBIDE MONONITRATE 30 MG TABLET PO SCH (08:34)
[2019-08-15] MEDS: FERROUS SULFATE 325 MG TABLET PO SCH (08:34)
[2019-08-15] MEDS: METOPROLOL TARTRATE 100 MG TABLET PO SCH (08:34)
[2019-08-15 08:50] LABS: Calcium 8.9 MG/DL (8.5-10.1); Osmolality,Calculated 279.8 MOS/KG (273-304)
[2019-08-15] MEDS ORDERED: SODIUM CHLORIDE 0.9% 1,000 ML IV SCH (10:00)
== END 2019-08-15 10:40 | DRG 280 ==
LOC: N.EDINP 13:42 → N.ED 13:42 → N.TELEN 17:04 → SUATTDRO 08-04 10:38 → N.CLINP 08-04 17:07 → N.TELES 08-05 11:21
PROVIDERS: ADMIT Family Medicine; ATTEND Internal Medicine
PROC: CLCCHCL (ICD-10-PCS; 2019-08-04 15:15)